=== PATIENT | female | born 1980 | race Caucasian/White ===

== ENCOUNTER 2018-05-29 11:01 | Emergency (ER) | payer OTHER, SELFPAY ==
[~2018-05-29] VITALS: Ht 172.7 cm; Wt 58.6 kg
[2018-05-29 11:02] VITALS: BP 133/76
[2018-05-29] MEDS ORDERED: PRED10TA2 PO (11:39)
[2018-05-29] MEDS ORDERED: METH1TAB40 PO (11:39)
== END 2018-05-29 11:42 | disposition home or self-care (01) ==
LOC: M ED 11:01
DX: S16.1XXA Strain of muscle, fascia and tendon at neck level, initial encounter (principal); X58.XXXA Exposure to other specified factors, initial encounter; Y92.89 Other specified places as the place of occurrence of the external cause; M54.12 Radiculopathy, cervical region; J45.909 Unspecified asthma, uncomplicated; M32.9 Systemic lupus erythematosus, unspecified